=== PATIENT | male | born 1965 | race Caucasian/White ===

== ENCOUNTER → 2021-01-26 12:23 | Outpatient (CLI) | payer OTHER, SELFPAY ==
--- NOTE | 2021-01-26 12:33 | EKG12_ITS ---
Test Reason : PREOP Blood Pressure : / mmHG Vent. Rate : 071 BPM Atrial Rate : 071 BPM P-R Int : 166 ms QRS Dur : 080 ms QT Int : 388 ms P-R-T Axes : 067 049 027 degrees QTc Int : 421 ms Normal sinus rhythm Nonspecific T wave abnormality Abnormal ECG Confirmed by NNAMDI MARCUS, CATHERINE ([id number]), purchase request editor OLIVER IZAGUIRRE ([id number]) on 01/27/2021 7:54:26 AM Referred By: Zach Vasquez Confirmed By:CATHERINE COTO MD
== END ==
LOC: PSN 12:31
PROVIDERS: PCP Family Medicine; Referring Provider Urology; Visit Provider Urology
DX: Z01.812 Encounter for preprocedural laboratory examination (principal); Z03.818 Encounter for observation for suspected exposure to other biological agents ruled out
CPT/HCPCS: 87635; 93005; C9803; U0005; U0003